=== PATIENT | female | born 1985 | race Hispanic/Latino ===

== ENCOUNTER 2018-04-14 11:09 | Emergency (ER) | payer BC ==
[~2018-04-14] VITALS: Ht 167.6 cm; Wt 96.6 kg
[2018-04-14] MEDS ORDERED: SODIUM CHLORIDE 0.9% 1000ML 1,000 ML IV STA (11:48)
[2018-04-14 13:52] VITALS: BP 118/70
== END 2018-04-14 13:20 | disposition home or self-care (01) ==
LOC: FSED 11:09
DX: R19.7 Diarrhea, unspecified (principal); R11.2 Nausea with vomiting, unspecified; E86.0 Dehydration; R31.29 Other microscopic hematuria; K75.9 Inflammatory liver disease, unspecified; F41.9 Anxiety disorder, unspecified; Z88.3 Allergy status to other anti-infective agents
CPT/HCPCS: 80053; 81003; 81025; 85025; 99283; J7030